=== PATIENT | male | born 1940 | race Caucasian/White ===

== ENCOUNTER → 2017-05-05 | Day surgery (SDC) | payer MEDICARE, OTHER ==
[~2017-05-05] VITALS: Ht 177.8 cm; Wt 98.1 kg
[~2017-05-05] MED LIST: ASPI81CH7 CHEW; BP MED PO; CHLORHEXIDINE GLUCONATE 2 % 1 PACK (2 CLOTHS) TOPICAL PRN; GLUCAGON 1 MG/ML VIAL IV PUSH ONE; LACTATED RINGER'S 1000 ML IV PRN; LIDOCAINE HCL 1% PF 5 ML SYRINGE OTHER ONE; LISI2.5T3 PO; METOPROLOL TARTRATE 25 MG TAB PO PRN; POVIDONE IODINE 5% (ANTISEPSIS KIT) 4 APPLICATIONS EACH NARE PRN; PROPOFOL 200 MG/20 ML AMP IV ONE; SODIUM CHLORID 0.9% 500 ML IV PRN; TAMS5CAP PO; ZOCO5TAB PO
[2017-05-05 08:39] VITALS: BP 199/93; PULSE 61; RESP 18; TEMP 98.1; O2SAT 98
[2017-05-05 09:23] LABS: AUTOMATED NEUTROPHIL # 6.5 TH/MM3 (1.8-7.7); BASOPHIL # 0.1 TH/MM3 (0-0.2); BASOPHIL % 0.9 % (0.0-2.0); EOSINOPHIL % 0.5 % (0.0-4.0); HEMOGLOBIN 13.5 GM/DL (13.0-17.0); LYMPHOCYTE # 2.3 TH/MM3 (1.0-4.8); MEAN CELL VOLUME 94.3 FL (80.0-100.0); MEAN CORPUSCULAR HGB CONC 32.9 % (32.0-36.0); MEAN PLATELET VOLUME 7.7 FL (7.0-11.0); MONO % 9.8 % (0.0-8.0); NEUT % 65.8 % (16.0-70.0); PLATELET COUNT 322 TH/MM3 (150-450); RED BLOOD COUNT 4.34 MIL/MM3 (4.50-5.90); RED CELL DISTRIBUTION WIDTH 12.2 % (11.6-17.2); WHITE BLOOD COUNT 9.9 TH/MM3 (4.0-11.0)
--- NOTE | 2017-05-05 09:48 | PD ---
HPI Chief Complaint: Foreign Body Time Seen by Provider: 09:02 Travel History International Travel<30 days: No Contact w/Intl Traveler<30days: No Traveled to known affect area: No History of Present Illness HPI Patient is a 77-year-old male who comes in because he has a piece of steak stuck in his esophagus. He says he was eating the steak last night and he felt it get stuck. He says this has happened before and usually he is able to walk around and usually either comes up or goes down into his stomach. He says he tried this last night, but it did not work. He is unable to swallow even his own spit. He denies any difficulty breathing. He denies any pains. He has never seen a corporate giving manager. Severity is moderate. PFSH Past Medical History Hx Anticoagulant Therapy: Yes (ASA 81MG DAILY) High Cholesterol: Yes Hypertension: Yes Past Surgical History Appendectomy: Yes Social History Alcohol Use: Yes (1-2 daily) Tobacco Use: No Allergies-Medications (Allergen,Severity, Reaction): Coded Allergies: Sulfa (Sulfonamide Antibiotics) (Verified Allergy, Severe, TOLD WHEN IN , 05/05/17) Reported Meds & Prescriptions Reported Meds & Active Scripts Active Reported Aspirin Children's (Aspirin) 81 Mg Chew 81 Mg CHEW DAILY Flomax (Tamsulosin HCl) 0.4 Mg Cap 0.4 Mg PO HS Zocor (Simvastatin) 5 Mg Tab 5 Mg PO DAILY [Bp Med] 1 Tab PO DAILY Lisinopril 2.5 Mg Tab 2.5 Mg PO DAILY Review of Systems Except as stated in HPI: all other systems reviewed are Neg General / Constitutional: No: Fever, Chills HENT: No: Headaches, Lightheadedness, Sore Throat, Congestion Cardiovascular: No: Chest Pain or Discomfort Respiratory: No: Shortness of Breath Gastrointestinal: No: Nausea, Vomiting, Abdominal Pain Musculoskeletal: No: Myalgias, Edema Skin: No Rash, No Change in Pigmentation Neurologic: No: Weakness, Dizziness Physical Exam Narrative GENERAL: Awake and alert, in no acute distress. SKIN: Focused skin assessment warm/dry. HEAD: Atraumatic. Normocephalic. EYES: Pupils equal and round. No scleral icterus. ENT: Mucous membranes pink and moist. NECK: Trachea midline. No JVD. CARDIOVASCULAR: Regular rate and rhythm. No murmur appreciated. RESPIRATORY: No accessory muscle use. Clear to auscultation. Breath sounds equal bilaterally. GASTROINTESTINAL: Abdomen soft, non-tender, nondistended. MUSCULOSKELETAL: No obvious deformities. No clubbing. No cyanosis. No edema. NEUROLOGICAL: Awake and alert. No obvious cranial nerve deficits. Motor grossly within normal limits. Normal speech. PSYCHIATRIC: Appropriate mood and affect; insight and judgment normal. Data Data Last Documented VS Vital Signs Date Time Temp Pulse Resp B/P (MAP) Pulse Ox O2 Delivery O2 Flow Rate FiO2 05/05/17 08:39 98.1 61 18 199/93 (128) 98 Orders Orders Iv Access Insert/Monitor (05/05/17 09:05) Complete Blood Count With Diff (05/05/17 09:05) Comprehensive Metabolic Panel (05/05/17 09:05) Act Partial Throm Time (Ptt) (05/05/17 09:05) Prothrombin Time / Inr (Pt) (05/05/17 09:05) Glucagon Inj (Glucagon Inj) (05/05/17 09:15) Labs Laboratory Tests Test 05/05/17 09:15 White Blood Count 9.9 TH/MM3 Red Blood Count 4.34 MIL/MM3 Hemoglobin 13.5 GM/DL Hematocrit 41.0 % Mean Corpuscular Volume 94.3 FL Mean Corpuscular Hemoglobin 31.0 PG Mean Corpuscular Hemoglobin Concent 32.9 % Red Cell Distribution Width 12.2 % Platelet Count 322 TH/MM3 Mean Platelet Volume 7.7 FL Neutrophils (%) (Auto) 65.8 % Lymphocytes (%) (Auto) 23.0 % Monocytes (%) (Auto) 9.8 % Eosinophils (%) (Auto) 0.5 % Basophils (%) (Auto) 0.9 % Neutrophils # (Auto) 6.5 TH/MM3 Lymphocytes # (Auto) 2.3 TH/MM3 Monocytes # (Auto) 1.0 TH/MM3 Eosinophils # (Auto) 0.0 TH/MM3 Basophils # (Auto) 0.1 TH/MM3 CBC Comment DIFF FINAL Differential Comment Prothrombin Time 10.0 SEC Prothromb Time International Ratio 1.0 RATIO Activated Partial Thromboplast Time 24.7 SEC [facility] Medical Decision Making Medical Screen Exam Complete: Yes Emergency Medical Condition: Yes Medical Record Reviewed: Yes Differential Diagnosis Foreign body versus pharyngitis versus esophageal stricture Narrative Course Patient is a 77-year-old male who comes in because he feels he has a piece of steak stuck in his throat. Exam shows patient is unable to swallow his own saliva and is spitting up all of his secretions. IV established, labs sent. Labs show no acute abnormalities. Patient given a dose of glucagon without relief of his symptoms. GI consulted to remove the foreign body. Diagnosis Primary Impression: Esophageal foreign body Qualified Codes: T18.108A - Unspecified foreign body in esophagus causing other injury, initial encounter Barb Smith MD May 05, 2017 09:48
[2017-05-05 09:53] LABS: ALBUMIN 3.7 GM/DL (3.4-5.0); BLOOD UREA NITROGEN 17 MG/DL (7-18); GLUCOSE,RANDOM 105 MG/DL (74-106)
[2017-05-05 09:54] LABS: BICARBONATE 26.2 MEQ/L (21.0-32.0); CHLORIDE 102 MEQ/L (98-107); SODIUM (NA) 136 MEQ/L (136-145)
[2017-05-05 09:56] LABS: GLOMERULAR FILTRATION RATE 72 ML/MIN (>89)
[2017-05-05 09:57] LABS: TOTAL PROTEIN 8.4 GM/DL (6.4-8.2)
[2017-05-05 09:59] LABS: ALKALINE PHOSPHATASE 76 U/L (45-117); ALT (GPT) 25 U/L (12-78); AST (GOT) 46 U/L (15-37)
--- NOTE | 2017-05-05 15:32 | GIPROC ---
[facility] [address] [place] [address], [id number] EGD PROCEDURE REPORT EXAM DATE: 05/05/2017 PATIENT NAME: Tyson Venegas MR #: [id number] BIRTHDATE: 1940 ATTENDING: Erica lBackwell MD ORDER #: [id number] SUPERVISOR FURNACE ROOM: Manuel Melvin and Deborah Chun STATUS: outpatient INDICATIONS: The patient is a 77 yr old male here for an EGD due to foreign body removal from esophagus and dysphagia PROCEDURE PERFORMED: EGD w/ biopsy EGD w/ dilation of esophagus via guidewire MEDICATIONS: None and Per Anesthesia. TOPICAL ANESTHETIC: CONSENT: The patient understands the risks and benefits of the procedure and understands that these risks include, but are not limited to: sedation, allergic reaction, infection, perforation and/or bleeding. Alternative means of evaluation and treatment include, among others: physical exam, x-rays, and/or surgical intervention. The patient elects to proceed with this endoscopic procedure. medical equipment was checked for proper function. Hand hygiene and appropriate measures for infection prevention was taken. After the risks, benefits and alternatives of the procedure were thoroughly explained, Informed consent was verified, confirmed and timeout was successfully executed by the treatment team. The patient was anesthetized with topical anesthesia and the Pentax EG-[id number] endoscope was introduced through the mouth and advanced to the second portion of the duodenum. Retroflexed views revealed a hiatal hernia The gastroscope was then slowly withdrawn and removed. ESOPHAGUS: There was LA Class C esophagitis noted. A biopsy was performed using cold forceps. Sample sent for histology. 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 The stricture was easily traversable. The stricture was dilated using a 15mm (45Fr) savary dilator over guidewire. STOMACH: There was erythematous moderate gastritis in the gastric antrum. A biopsy was performed using cold forceps. Sample sent for histology. DUODENUM: The duodenal mucosa appeared normal in the bulb and second portion of the duodenum. ADVERSE EVENTS: There were no complications. IMPRESSIONS: 1. There was LA Class C esophagitis noted; biopsy was performed 2. There was a short stricture in the distal esophagus; The stricture was dilated using a 15mm (45Fr) savary dilator over guidewire 3. There was erythematous gastritis in the gastric antrum; biopsy was performed 4. Normal duodenal mucosa in the bulb and second portion of the duodenum 5. Retroflexed views revealed a hiatal hernia RECOMMENDATIONS: 1. Await biopsy results. Biopsy results will not be ready for 7-10 days. If you don't hear from us in two weeks, call our office for biopsy results. 2. Anti-reflux regimen 3. Start PPI 4. Avoid NSAIDS 5. Chew food well. PATIENT CONDITION: stable DISPOSITION: Home REPEAT EXAM: Return 1 month EGD pending biopsy results Erica Blackwell MD eSigned: Erica Blackwell MD 05/05/2017 3:31 PM cc: PATIENT NAME: Tyson Venegas MR#: [id number]
[2017-05-05 15:38] VITALS: TEMP 98.8
[2017-05-05 16:10] VITALS: BP 136/66; PULSE 63; RESP 16; O2SAT 96
--- NOTE | 2017-05-05 17:49 | MB ---
cc: VIKTORIA FOX MD, JESSICA DATE OF CONSULTATION 05/05/[address] Barb Smith REASON FOR CONSULTATION Esophageal foreign body. HISTORY OF PRESENT ILLNESS Mr. Villafuerte is a 77-year-old gentleman who is originally from [place]. He says he was having dinner last night at a local steak house when he felt a piece of steak got lodged in his esophagus. He says he has had on-and-off problems with this in the past, but usually he is able to either throw this up or pass it down, but this time it did not pass overnight so he came into the hospital this morning. On presentation, he was unable to swallow his saliva but by the time I got to see him, he says he was able to handle his saliva. He is not having any discomfort at this time. PAST MEDICAL HISTORY 1. Elevated cholesterol, 2. Hypertension, 3. Reflux disease. PAST SURGICAL HISTORY 1. Appendectomy, 2. Colonoscopy in the past Never had an EGD in the past. ALLERGIES SULFA DRUGS MEDICATIONS On admission - 1. Aspirin. 2. Flomax. 3. Zocor. 4. Lisinopril. REVIEW OF SYSTEMS At this time,the patient is in no discomfort. No nausea, vomiting, no shortness of breath. PHYSICAL EXAMINATION GENERAL: A well-nourished man in no apparent distress. VITAL SIGNS: Stable. HEAD AND NECK: Anicteric sclerae. CHEST: Bilateral air entry with rales. ABDOMEN: Soft, nontender. No hepatosplenomegaly. Bowel sounds are present. TECHNICAL MARKETING CONSULTANT: Nonfocal. RECTAL: Exam deferred at this time. LABORATORY DATA White cell count of 9.9, creatinine is one, AST 46, INR is one. IMPRESSION Esophageal foreign body. RECOMMENDATIONS Emergent EGD with foreign body removal planned under general anesthesia, n.p.o. at this time with IV fluid. Further recommendations to follow. Thank you for this referral. MD SHANNAN Subramanian/ /4:29 PM /5:31 PM
--- NOTE | 2017-05-05 18:26 | EKG ---
Date Performed: 05/05/2017 Time Performed: 10:14:14 PTAGE: 77 years EKG: SINUS BRADYCARDIA MINIMAL ST DEPRESSION BORDERLINE ECG NO PREVIOUS TRACING DOCTOR: Julian Villafana Interpretating Date/Time 05/05/2017 18:24:31
== END | disposition home or self-care (01) ==
LOC: PHED 08:38 → PHSDC 10:24
PROVIDERS: ATTEND Internal Medicine Gastroenterology
DX: K22.2 Esophageal obstruction (principal); K29.50 Unspecified chronic gastritis without bleeding; K44.9 Diaphragmatic hernia without obstruction or gangrene; K21.0 Gastro-esophageal reflux disease with esophagitis; I10 Essential (primary) hypertension; E78.00 Pure hypercholesterolemia, unspecified; Z01.818 Encounter for other preprocedural examination; Z79.82 Long term (current) use of aspirin
CPT/HCPCS: 00731; 43239; 43248; 80053; 85025; 85610; 85730; 88305; 88312; 93005; 96374; 99285; C1769; J1610